=== PATIENT | female | born 1970 | race Caucasian/White ===

== ENCOUNTER 2024-01-18 08:50 | Outpatient (CLI) | payer OTHER, SELFPAY ==
--- NOTE | ~2024-01-18 | CT_ITS ---
CT Scan of the Chest without Contrast: Clinical Indication: Lung cancer screening, nicotine dependence Technique: Contiguous sections were acquired throughout the chest without intravenous contrast. Dose reduction technique was used on this scan by utilizing automated exposure control and iterative recon struction technique. The dose-length product (DLP) was 92.70 mGy-cm. Findings: There is no evidence of any significant mediastinal, hilar or axillary lymphadenopathy. The mediastin al soft tissues appear normal. There is no evidence of pleural or pericardial effusion. The lungs are clear. No pulmonary nodules or infiltrates are noted. Probable minimal emphysema. Images through the upper abdomen reveal no abnormalities. Impression: Lung RADS 1: Negative. 12 month follow-up screening CT advised. Probable minimal emphysema. Reviewed, dictated and finalized at location . Impression: Lung RADS 1: Negative. 12 month follow-up screening CT advised. Probable minimal emphysema.
== END 2024-01-18 08:51 | disposition home or self-care (01) ==
PROVIDERS: PCP Nurse Practitioner Family; Visit Provider Nurse Practitioner Family
DX: Z12.2 Encounter for screening for malignant neoplasm of respiratory organs (principal); F17.210 Nicotine dependence, cigarettes, uncomplicated
CPT/HCPCS: 71271

== ENCOUNTER 2024-02-22 14:29 | Outpatient (CLI) | payer OTHER, SELFPAY ==
--- NOTE | ~2024-02-22 | MM_ITS ---
EXAMINATION: MM screening ayan BI w fany HISTORY: Screening TECHNIQUE: Craniocaudal and mediolateral oblique 3-D tomosynthesis images were obtained and synthetic 2-D images were generated. CAD analysis was submitted and interpreted. COMPARISON: No prior mammogram is available for comparison at this institution. BREAST PARENCHYMAL COMPOSITION: Not dense: There are scattered areas of fibroglandular density. FINDINGS: There are multiple small masses centered in the upper outer quadrant of the right breast. N o mammographic evidence for malignancy in the left breast. IMPRESSION: 1. Multiple small right breast masses. 2. Additional mammographic views and possible breast ultrasound are recommended. BI-RADS Category 0: Incomplete: Needs additional imaging evaluation. Reviewed, dictated and finalized at location B. IMPRESSION: 1. Multiple small right breast masses. 2. Additional mammographic views and possible breast ultrasound are recommended . BI-RADS Category 0: Incomplete: Needs additional imaging evaluation.
== END 2024-02-22 14:30 | disposition home or self-care (01) ==
PROVIDERS: PCP Nurse Practitioner Family; Visit Provider Nurse Practitioner Family
DX: Z12.31 Encounter for screening mammogram for malignant neoplasm of breast (principal); R92.8 Other abnormal and inconclusive findings on diagnostic imaging of breast
CPT/HCPCS: 77063; 77067

== ENCOUNTER 2024-03-22 10:56 | Outpatient (CLI) | payer OTHER, SELFPAY ==
--- NOTE | ~2024-03-22 | MMUS_ITS ---
EXAMINATION: MM diagnostic ayan RT w fany, US breast RT limited HISTORY: Follow-up right breast mass TECHNIQUE: Additional 3-D tomosynthesis images of the right breast were performed and synthetic 2-D i mages were generated. CAD analysis was submitted and interpreted. High resolution Limited right breas t ultrasound was performed. COMPARISON: 02/22/2024 BREAST PARENCHYMAL COMPOSITION: Not dense: There are scattered areas of fibroglandular density. FINDINGS: MAMMOGRAPHIC FINDINGS: There is a dominant mass in the upper outer quadrant of the right breast with central lucencies. Ther e are smaller scattered nodules in the right breast predominantly in the upper half of the breasts. T here are punctate monomorphic calcifications which have a benign appearance. ULTRASOUND: Limited right breast ultrasound: At 10:00, 8 cm from the nipple there is a 9 mm intramammary lymph no de corresponding to the mass identified on mammography. No other discrete mass identified. IMPRESSION: 1. Benign 9 mm intramammary lymph node corresponds to the dominant mass seen on mammography. Addition al small radiolucent nodules of the right breast and calcifications are likely benign. 2. Recommend 6 month follow-up diagnostic right mammogram BI-RADS category 3, probably benign findings. Reviewed, dictated and finalized at location B. IMPRESSION: 1. Benign 9 mm intramammary lymph node corresponds to the dominant mass seen on mammography. Additional small radiolucent nodules of the right breast and calc ifications are likely benign. 2. Recommend 6 month follow-up diagnostic right mammogram BI-RADS category 3, probably benign findings.
== END 2024-03-22 10:57 | disposition home or self-care (01) ==
LOC: ANHIMG 10:57
PROVIDERS: PCP Nurse Practitioner Family; Visit Provider Nurse Practitioner Family
DX: N63.0 Unspecified lump in unspecified breast (principal); R92.8 Other abnormal and inconclusive findings on diagnostic imaging of breast
CPT/HCPCS: 76642; 77061; 77065; G0279

== ENCOUNTER 2024-11-28 11:17 | Outpatient (CLI) | payer OTHER, SELFPAY ==
--- NOTE | ~2024-11-28 | MMUS_ITS ---
EXAMINATION: US breast RT limited, MM diagnostic ayan BI w fany HISTORY: Follow-up right breast mass TECHNIQUE: Additional 3-D tomosynthesis images of the breasts were performed and synthetic 2-D images were generated. CAD analysis was submitted and interpreted. High resolution Limited right breast ult rasound was performed. COMPARISON: 02/22/2024 BREAST PARENCHYMAL COMPOSITION: Not dense: There are scattered areas of fibroglandular density. FINDINGS: MAMMOGRAPHIC FINDINGS: There is a stable intramammary lymph node in the upper outer quadrant of the right breast with centra l lucency. No suspicious masses, calcifications or architectural distortion are identified to suggest malignancy. ULTRASOUND: Limited right breast ultrasound: At 10:00, 8 cm from the nipple there is a 1.2 cm intramammary lymph node. At 9:00, 5 cm from the nipple there is 3 mm cyst. In the right axilla there is a normal-appeari ng 8 mm lymph node. No suspicious masses to suggest malignancy. IMPRESSION: 1. No evidence for malignancy in either breast. Stable benign-appearing intramammary lymph node of th e right breast. 2. Routine yearly screening mammogram and regular clinical breast examination are recommended. BI-RADS Category 2: Benign finding(s). Reviewed, dictated and finalized at location A. IMPRESSION: 1. No evidence for malignancy in either breast. Stable benign-appearing intrama mmary lymph node of the right breast. 2. Routine yearly screening mammogram and regular clinical breast examination a re recommended. BI-RADS Category 2: Benign finding(s).
--- OUTSIDE RECORDS SUMMARY | 2024-11-28 12:53 | XMS_ITS | Clinical Summary ---
Author Organization [facility] Address [facility] [place] [address] Care Team Providers Care Shift Mechanic Name Role Phone Rajni Ordaz FAITH Primary Care Provider [phone] Allergies Active Allergy Reactions Criticality Noted Date Comments Alum & Mag Hydroxide-Simeth Anaphylaxis High 017 Famotidine Anaphylaxis High 08/20/2020 Medications diphenhydrAMINE 25 MG capsule Take 1 capsule (25 mg total) by mouth every 6 (six) hours as needed for Itching. Active Loratadine 10 MG Cap Active albuterol sulfate HFA 108 (90 Base) MCG/ACT inhalerIndicatio ns:Simple chronic bronchitis ([facility]/HCC HHS/HCC) INHALE 1 TO 2 PUFFS BY MOUTH EVERY 4 HOURS NEEDED 18 g 11 4 Active traZODone (DESYREL) 100 MG tabletIndication s:Primary insomnia Take 1 tablet (100 mg total) by mouth nightly at bedtime. 90 tablet 3 5 Active PARoxetine (PAXIL) 20 MG tabletIndication s:Recurrent major depressive disorder, in partial remission Take 1 tablet (20 mg total) by mouth daily. 90 tablet 3 5 Active Albuterol-Budeso nide (AIRSUPRA) 90-80 MCG/ACT AerosolIndicatio ns:Unilateral emphysema (CMS/HCC HHS/HCC) Inhale 2 puffs into the lungs every 6 (six) hours as needed (sob and wheezing). 32.1 g 3 5 Active budesonide-glyco pyrrolate-formot jaclyn (BREZTRI) 160-9-4.8 MCG/ACT inhalerIndicatio ns:Unilateral emphysema ([facility]) Inhale 2 puffs into the lungs 2 (two) times daily. 32.1 g 3 5 Active baclofen (LIORESAL) 10 MG tabletIndication s:Chronic bilateral low back pain without sciatica Take 1 tablet (10 mg total) by mouth 3 (three) times daily. 90 tablet 5 Active ibuprofen (MOTRIN) 800 MG tabletIndication s:Other chronic pain Take 1 tablet (800 mg total) by mouth 2 (two) times daily as needed. 60 tablet 5 Active HYDROcodone-acet aminophen (NORCO) 7.5-325 MG tabletIndication s:Chronic Pain Take 1 tablet by mouth 2 (two) times a day. Indications : Chronic Pain 60 tablet 5 Active HYDROcodone-acet aminophen (NORCO) 7.5-325 MG tabletIndication s:Chronic Pain Take 1 tablet by mouth 2 (two) times a day. Indications : Chronic Pain 60 tablet 5 11/05/19 25 Discontinue d(Reorder) predniSONE (DELTASONE) 20 MG tabletIndication s:COPD exacerbation ([facility]) Take 2 tablets (40 mg total) by mouth daily for 5 days. 10 tablet 5 11/26/19 25 azithromycin (ZITHROMAX) 250 MG tabletIndication s:COPD exacerbation ([facility]) Take 2 tablets on day #1, then 1 tablet daily x 4d. 6 tablet 5 11/26/19 25 Active Problems Problem Noted Date Diagnosed Date COPD exacerbation ([facility]) 11/20/2024 Primary insomnia 10/07/2024 Recurrent major depressive disorder, in partial remission 10/07/2024 Constipation, unspecified constipation type 06/07 Vitamin D deficiency 06/24/2022 Chronic pain 08/07/2017 COPD (chronic obstructive pu lmonary disease) ([facility]) 07/10/2017 Post-menopausal 07/10/2017 GERD (gastroesophageal reflux disease) 7 Hyperlipidemia 07/10/2017 Ulcerative colitis ([facility]) 07/10/2017 Vasomotor symptoms due to menopause 07/10/2017 Early menopause 07/04/2017 Low back pain 07/04/2017 Resolved Problems Problem Noted Date Diagnosed Date Resolved Date Body mass index (BMI) of 23. 0 to 23.9 in adult 08/13/2021 03/03/2023 Body mass index (BMI) 24.0-24.9, adult 08/20/2020 03/03/2023 Rash 08/20/2020 08/15/2021 Adult BMI 25.0-25.9 kg/sq m 07/14/2019 08/20/2020 Body aches 10/05/2017 08/15/2021 Cough 10/05/2017 08/15/2021 Crohn's disease ([facility]) 07/10/2017 08/15/2021 Encounters Date Type Department Care Team Description 11/28/2024 Telephone [facility] Multispecialty [facility] - [address], [address] [place] [address] Parmjit Nunez MD Prior Authorization (Colonoscopy-[id number]) 11/21/2024 Telephone [facility] Internal [address] [address] Rajni Ordaz FNP Orders 11/20/[address] [phone] Demario García MD Cough 11/04/2024 Telephone [facility] Internal [address] [address] Rajni Ordaz FNP Refill Request 10/29/[address] [address] Rajni Ordaz FNP Medication Request 10/21/[address] [address] Rajni Ordaz FNP Information 10/03/2024 1:00 PM DIRECTOR OF ASSESSMENT Office Visit [facility] Internal [address] [address] Rajni Ordaz FNP Follow Up (medication) 10/03/2024 Travel [address] [address] Rajni Ordaz FNP Orders 09/05/2024 Telephone [facility] Internal [address] [address] Rajni Ordaz FNP Medication Request from Last 3 Months Immunizations Immunization Administration Dates Next Due [facility] COVID-19 (ORIGINAL FO RMULATION, PURPLE CAP) mRNA, LNP-S, PF, 30 MCG/0.3 ML DOSE 12/15/2020,11/21/2020 Family History Medical History Relation Comments Diabetes Father Heart Father Heart Disease Father Hypertension Father Cancer Maternal Aunt 1 breast Heart Disease Maternal Aunt 1 Cancer Maternal Aunt 2 Cancer Maternal Aunt 3 Heart Maternal Grandfather Heart Maternal Uncle Heart Disease Maternal Uncle Cancer Mother Hyperlipidemia Mother Obesity Mother Aneurysm Paternal Aunt Aneurysm Paternal Grandmother Aneurysm Sister Relation Status Comments Father Maternal Aunt 1 Maternal Aunt 2 Maternal Aunt 3 Maternal Grandfather Maternal Uncle Mother Paternal Aunt Paternal Grandmother Sister Social History Tobacco Use Types Packs/Day Years Used Date Smoking Tobacco: Every Day Cigarettes 0.8 36 Passive Smoke Exposure: Current Smokeless Tobacco: Never Tobacco Cessation:Ready to Q uit: Yes; Counseling Given: Yes Comments:provider to counselor marriage and family Alcohol Use Standard Drinks/Week Comments No 0 (1 standard drink = 0.6 oz pur e alcohol) AUDIT-C Answer Date Recorded Frequency of Alcohol Consumption Never 09/13/2018 Average Number of Drinks Not on file 019 Frequency of Binge Drinking Not on file 02/2019 PHQ-2 Answer Date Recorded Patient Health Questionnaire-2 Score 0 10/03/2024 Comments No Sex and Gender Information Value Date Recorded Sex Assigned at Female 10/03/2024 12:44 PM DIRECTOR OF ASSESSMENT Legal Sex Female 9:10 PM CDT Gender Identity Female 10/03/2024 1:10 PM DIRECTOR OF ASSESSMENT Sexual Orientation Not on file Last Filed Vital Signs Vital Sign Reading Time Taken Comments Blood Pressure 170/86 10/03/2024 1:10 PM DIRECTOR OF ASSESSMENT Pulse 86 10/03/2024 1:10 PM DIRECTOR OF ASSESSMENT Temperature 35.8 C (96.4 F) 10/03/2024 1:10 PM DIRECTOR OF ASSESSMENT Respiratory Rate 15 10/03/2024 1:10 PM DIRECTOR OF ASSESSMENT Oxygen Saturation 97% 10/03/2024 1:10 PM DIRECTOR OF ASSESSMENT Inhaled Oxygen Concentration - - Weight 73.8 kg (162 lb 12.8 oz) 10/03/2024 1:10 PM DIRECTOR OF ASSESSMENT Height 160 cm (5' 3 ) 10/03/2024 1:10 PM DIRECTOR OF ASSESSMENT Body Mass Index 28.84 10/03/2024 1:10 PM DIRECTOR OF ASSESSMENT Plan of Treatment Upcoming Encounters Date Type Department Care Team (Late st Contact Info) Description 12/23/2024 12:00 PM CDT Hospital Encounter [facility] [place] [address] Parmjit Nunez MD [address] [address] 12/23/2024 12:00 PM CDT - 12/23/2024 12:30 PM CDT Surgery [facility] Endo/[place] [address] Parmjit Nunez MD [address] [address] COLONOSCOPY Scheduled Procedures Name Priority Associated Diagnoses Date/Ti me COLONOSCOPY Ulcerative colitis with complication, unspecified location (CMS/HCC HHS/HCC) Constipation, unspecified constipation type 12/23/2024 12:00 PM CDT Health Maintenance Due Date Last Done Comments Cervical Cancer Screening Pa p Smear (Age 30 to 64) Every 3 Years 1971 Colorectal Cancer Screening Colonoscopy (10 Years) 1971 Annual Physical 1974 Hepatitis B Vaccines (1 of 3 - 19+ 3-dose series) 1990 Pneumococcal Vaccine: 50+ Years (1 of 2 - PCV) 1990 Cervical Cancer Screening Pa darnell with HPV Testing (Age 30 to 64) Every 5 Years 2001 Lung Cancer Screening 2021 Cervical Cancer Screening with HPV 01/15/2025 Postponed from 09/30 (Patient Refused) COVID-19 Vaccine (3 - 2023-2 5 season) 2025 12/15/2020, 11/21/2020 Postponed from 04/07/2024 (Patient Refused) DTaP, Tdap and Td Vaccines ( 1 - Tdap) 10/03/2025 Postponed from 09/30 (Patient Refused) Zoster Vaccines (1 of 2) 10/03/2025 Pos tponed from 2021 (Patient Refused) Mammogram Screening 03/22/2026 03/22/2024, 02/22/2024, 1970 Hepatitis C Completed 01/17/2024 PHQ-2 (Physician [place]) Completed 10/03/2024 Meningococcal B Vaccine Aged Out No l onger eligible based on patient's age to complete this topic Meningococcal Vaccine Aged Out No nicanor abiola eligible based on patient's age to complete this topic RSV Immunizations Under 20 Months Aged Out No longer eligible b ased on patient's age to complete this topic Goals Goal Patient Goal Type Associated Problems Recent Progress Patient-Stated? Author Autogenerat ed Goal Care Plan Autogenerated Problem No Janelle Bishop ironer hand Procedure Name Priority Date/Time Associated Diagnosis Comments MAMMOGRAM GENERIC (SCAN ORDER) 03/22/2024 HEPATITIS C ANTIBODY Routine 01/17/2024 7:17 AM CDT Encounter for hepatitis C screening test for low risk patient from Last 3 Months or Most Recently Relevant to Health Maintenance Results * MAMMOGRAM GENERIC (SCAN ORDER) (03/22/2024) Anatomical Region Laterality Modality Other 03/22/2024 [facility] Scanned SCANNING Final Resu lt * HEPATITIS C ANTIBODY ([facility] ONLY) (01/17/2024 7:17 AM CDT) HEPATITIS C AB NON-REACTI VE NON-REACT [place] 01/17/2024 7:28 PM CDT [facility] Comment: ANTIBODIES TO HCV NOT DETECTED. DOES NOT EXCLUDE THE POSSIBILITY OF EXPOSURE TO HCV. 01/17/2024 7:17 AM CDT [facility] Final Result [facility] [address] [place] [address], [place] [phone] [id number] from Last 3 Months or Most Recently Relevant to Health Maintenance Additional Health Concerns Active Problems Noted Date Diagnosed Date Autogenerated Problem 11/20/2024 Insurance R Advance Directives Documents on File Type Date Recorded Patient Work Over Rig Operator Expl anation Legal Documents 09/13/2018 Self pay for m Care Teams Shift Mechanic Relationship Specialty Start Date End Date Rajni Ordaz FNP [address] [place] [address] PCP - General Nurse Practitioner Family 07/19/18
--- OUTSIDE RECORDS SUMMARY | 2024-11-28 12:53 | XMS_ITS | Encounter Summary ---
Author Organization [facility] Address [address] [place] [address] Care Team Providers Care Engineer And Geologist Name Role Phone Rajni Ordaz FAITH Primary Care Provider [phone] Encounter Details Date Type Department Care Team (Late st Contact Info) Description 02/01/2023 MyChart Message Enc [facility] [address] [place] [address] [place], [facility] Provider Air Quality Message Social History Tobacco Use Types Packs/Day Years Used Date Smoking Tobacco: Every Day Cigarettes 0.8 36 Smokeless Tobacco: Never Comments:provider to mental health counselor Alcohol Use Standard Drinks/Week Comments No 0 (1 standard drink = 0.6 oz pur e alcohol) AUDIT-C Answer Date Recorded Frequency of Alcohol Consumption Never 09/13/2018 Average Number of Drinks Not on file 019 Frequency of Binge Drinking Not on file 02/2019 PHQ-2 Answer Date Recorded PHQ-2 Score - If the patient scores above 3, please move on to questions 3-9 0 08/20/2020 Comments No Sex and Gender Information Value Date Recorded Sex Assigned at Female 10/03/2024 12:44 PM FILM PROCESSING UTILITY WORKER Legal Sex Female 9:10 PM CDT Gender Identity Female 10/03/2024 1:10 PM FILM PROCESSING UTILITY WORKER Sexual Orientation Not on file documented as of this encounter Plan of Treatment Upcoming Encounters Date Type Department Care Team (Late Contact Info) Description 12/23/2024 12:00 PM CDT Hospital Encounter [facility] [place] [address] Parmjit Nunez MD 3 [facility] [address] [place] [address] 12/23/2024 12:00 PM CDT - 12/23/2024 12:30 PM CDT Surgery [facility] [place] [address] Parmjit Nnuez MD 3 [facility] [address] [place] [address] COLONOSCOPY Scheduled Procedures Name Priority Associated Diagnoses Date/Ti wv COLONOSCOPY Ulcerative colitis with complication, unspecified location ([facility]) Constipation, unspecified constipation type 12/23/2024 12:00 PM CDT documented as of this encounter Visit Diagnoses Not on filedocumented in this encounter Additional Health Concerns Infection Onset Date Last Indicated Resolved Time COVID-19 Rule Out 04/24/2024 04/24/2024 04/24/2024 9:25 AM CDT COVID-19 Confirmed 04/24/2024 04/24/2024 12:32 AM CDT Assessment Noted Time PHQ-9 Depression Total Score: 1 08/20/19 21 11:53 AM FILM PROCESSING UTILITY WORKER documented as of this encounter Care Teams Engineer And Geologist Relationship Specialty Start Date End Date Rajni Ordaz FNP [address] [place] [address] PCP - General Nurse Practitioner Family 07/19/18 documented as of this encounter
--- OUTSIDE RECORDS SUMMARY | 2024-11-28 12:53 | XMS_ITS | CONTINUITY OF CARE DOCUMENT ---
Author Name shimon robins Address Unknown Organization [facility] Address [address] [place] [address] Phone [phone] Care Team Providers Care Regional Climate Change Analyst Name Role Phone Gibran Damon MD Unavailable [phone] [place] SESAYP-CRajni Unavailable [place] SENIOR SOFTWARE DEVELOPMENT MANAGER-C, Rajni Unavailable INSURANCE PROVIDERS Payer name Policy type / Coverage type [place] red democrat ID [id number] PAY
--- OUTSIDE RECORDS SUMMARY | 2024-11-28 12:53 | XMS_ITS | Encounter Summary ---
Author Organization [facility] Address [address] [place] [address] Care Team Providers Care House Decorator Name Role Phone Rajni Ordaz FAITH Primary Care Provider [phone] Reason for Visit * Reason Onset Date Comments Prior Authorization 11/28/2024 Colonoscopy- [id number] Encounter Details Date Type Department Care Team (Late st Contact Info) Description 11/28/2024 Telephone [facility] Multispecialty Care - [facility] 3 [facility], [address] [place] [phone] Parmjit Nunez MD [address] [address] Prior Authorization (Colonoscopy-[id number] 0;[id number]) Social History Tobacco Use Types Packs/Day Years Used Date Smoking Tobacco: Every Day Cigarettes 0.8 36 Passive Smoke Exposure: Current Smokeless Tobacco: Never Comments:provider to financial services counselor Alcohol Use Standard Drinks/Week Comments No [...] Sex Assigned at Female 10/03/2024 12:44 PM WIRE BOUND BOX MACHINE HELPER Legal Sex Female 9:10 PM CDT Gender Identity Female 10/03/2024 1:10 PM WIRE BOUND BOX MACHINE HELPER Sexual Orientation Not on file documented as of this encounter Progress Notes * Bindu Barker MA - 11/28/2024 10:08 AM CDT Case Details Requestor Name: Parmjit Nunez Department: Gastroenterology Phone Number: E-mail Address: [email or web address] Department PhoneNumber: UR Department Fax Number: UR Department Contact Info: Patient Employee's Name: [employer]HELLE [employer]K Name: MECHELLE P[employer]K Ttng-mw-Bedwx: 1970 Home Phone: Details (Medical Outpatient ) Treatment Setting: Outpatient Treatment Type: Surgical Urgency: Elective Start Date: 12-23-2024 Direct Network: [employer] [facility] Primary Network: [facility] Diagnosis Code Description K51.90 ULCERATIVE COLITIS UNS W/O COMP K59.00 CONSTIPATION UNSPECIFIED Services Code Description Unit 54564 DIAGNOSTIC COLONOSCOPY 1 D 04539 COLONOSCOPY AND BIOPSY 1 D 67385 COLONOSCOPY W/LESION REMOVAL 1 D Facility Information Name: [facility] Address:[address] [place] [address] and ZIP: [place] [address] Phone: Tax Identification Number: [id number] Provider Information First Name: PARMJIT Andujar Last Name: JAKY Gender: M Address: [address] and ZIP: [place] [address] Phone: Tax Identification Number: [id number] National Provider Identifier: [id number] Clinical Documentation [email or web address] Prior authorization and predetermination are not a guarantee of benefits.Please contact the benefits department to verify coverage and benefit information for the member. Transaction Submission Confirmation was submitted on 11-28-2024 by [email or web address] documented in this encounter Plan of Treatment Upcoming Encounters Date Type Department Care Team ([facility] st Contact Info) Description 12/23/2024 12:00 PM CDT Hospital Encounter [facility] [place] [place] [address] Parm[facility]it Nunez MD [facility] [address] [place] [address] 12/23/2024 12:00 PM CDT - 12/23/2024 12:30 PM CDT Surgery [facility] [address] [facility] [place] [address] Parmjit Nunez MD [address] [facility] [address] [place] [address] COLONOSCOPY Scheduled Procedures Name Priority Associated Diagnoses Date/Ti me COLONOSCOPY Ulcerative colitis with complication, unspecified location ([facility]) Constipation, unspecified constipation type 12/23/2024 12:00 PM CDT documented as of this encounter Goals Goal Patient Goal Type Associated Problems Recent Progress Patient-Stated? Author Autogenerat ed Goal Care Plan Autogenerated Problem No Janelle Bishop, RN documented as of this encounter Visit Diagnoses Not on filedocumented in this encounter Additional Health Concerns Active Problems Noted Date Diagnosed Date Autogenerated Problem 11/20/2024 Assessment Noted Time PHQ-9 Depression Total Score: 1 08/20/19 21 11:53 AM WIRE BOUND BOX MACHINE HELPER documented as of this encounter Care Teams House Decorator Relationship Specialty Start Date End Date Rajni Ordaz FNP [address] [place] [address] PCP - General Nurse Practitioner Family 07/19/18 documented as of this encounter
== END 2024-11-28 11:18 | disposition home or self-care (01) ==
PROVIDERS: PCP Nurse Practitioner Family; Visit Provider Nurse Practitioner Family
DX: R92.8 Other abnormal and inconclusive findings on diagnostic imaging of breast (principal); N63.10 Unspecified lump in the right breast, unspecified quadrant
CPT/HCPCS: 76642; 77062; 77066; G0279

== ENCOUNTER 2024-12-11 13:20 | Outpatient (CLI) | payer OTHER, SELFPAY ==
--- NOTE | ~2024-12-11 | CT_ITS ---
CT abdomen pelvis wo con Ordering provider: FAROOQ CAMPBELL, INDIRECT SALES REPRESENTATIVE History: 54 years Female with . LEFT FLANK PAIN . Comparison: None. Technique: CT abdomen and pelvis without IV and without oral contrast. Automated exposure control and iterative reconstruction technique were employed. The dose-length product was 533.26 mGy-cm. Findings: VISUALIZED LOWER CHEST: Normal. UPPER ABDOMINAL ORGANS: Liver: Normal. Gallbladder: Status post cholecystectomy. Spleen: Normal. Stomach/duodenum: Normal. Pancreas: Normal. Adrenals: Normal. Kidneys: Normal. PELVIC ORGANS: The bladder is underfilled with thickened wall. Evaluation for cystitis advised. BOWEL AND MESENTERY: Colon: Mild sigmoid diverticulosis without diverticulitis. Normal appendix. Small Bowel: Normal. No obstruction. Peritoneum/mesentery: No free air or free fluid. No mesenteric lymphadenopathy. RETROPERITONEUM: Mild atheromatous disease of the abdominal aorta. No retroperitoneal lymphadenopat hy. MUSCULOSKELETAL: Superficial soft tissues: Tiny fat-containing umbilical hernia. The superficial soft tissues are norm al. Bones: Age appropriate degenerative changes of the spine. Spondylolysis at the level of L5-S1 with fi rst-degree spondylolisthesis. IMPRESSION: 1. No evidence of appendicitis, diverticulitis or intestinal obstruction. 2. No definite renal stones. 3. Underfilled urinary bladder. Evaluation for cystitis advised. Reviewed, dictated and finalized at location A.
== END 2024-12-11 13:21 | disposition home or self-care (01) ==
LOC: MICIMG 13:21
PROVIDERS: PCP Nurse Practitioner Family; Visit Provider Nurse Practitioner Family
DX: R10.2 Pelvic and perineal pain (principal); R31.0 Gross hematuria
CPT/HCPCS: 74176

== ENCOUNTER 2025-01-20 13:13 | Outpatient (CLI) | payer OTHER, SELFPAY ==
--- NOTE | ~2025-01-20 | CT_ITS ---
CT Scan of the Chest without Contrast: Clinical Indication: Lung cancer screening, nicotine dependence Technique: Contiguous sections were acquired throughout the chest without intravenous contrast. Dose reduction technique was used on this scan by utilizing automated exposure control and iterative recon struction technique. The dose-length product (DLP) was 69.59 mGy-cm. COMPARISON: 01/18/2024 Findings: There is no evidence of any significant mediastinal, hilar or axillary lymphadenopathy. The mediastin al soft tissues appear normal. There is no evidence of pleural or pericardial effusion. The lungs are clear. No pulmonary nodules or infiltrates are noted. Mild emphysema. Images through the upper abdomen reveal no abnormalities. Impression: Lung RADS 1: Negative. 12 month follow-up screening CT advised. Reviewed, dictated and finalized at location . Impression: Lung RADS 1: Negative. 12 month follow-up screening CT advised.
== END 2025-01-20 13:14 | disposition home or self-care (01) ==
LOC: MICIMG 13:14
PROVIDERS: PCP Nurse Practitioner Family; Visit Provider Nurse Practitioner Family
DX: J42 Unspecified chronic bronchitis (principal)
CPT/HCPCS: 71271

== ENCOUNTER 2025-06-23 12:13 | Emergency (ER) | payer OTHER, SELFPAY ==
--- NOTE | ~2025-06-23 | XR_ITS ---
Examination: XR chest 2V Clinical History: PT STATES CHEST PAIN AND COUGH X 1 WEEK Comparison: CT lung screening 01/20/2025 Technique: PA and Lateral Findings: Cardiomediastinal silhouette normal size and configuration. Lungs clear. Mild hyperinflation. No acute bony abnormality. IMPRESSION: 1. No acute cardiopulmonary findings. Reviewed, dictated and finalized at location R. RUMENTAL MUSIC TEACHER
--- NOTE | 2025-06-23 12:14 | ECG_ITS ---
Test Date: 2025-06-23 12:26:45 Measurements Intervals [place] Rate: 84 P: 69 NV: 160 QRS: 50 QRSD: 87 T: 51 QT: 366 QTc: 435 Interpretive Statements SINUS RHYTHM No previous ECG available for comparison Electronically Signed On 06-23-2025 12:48:46 MACHINE OPERATOR ASSISTANT by Rickie Rios M.D.
[2025-06-23 12:40] LABS: Hematocrit 42.6 % (37.0-47.0); Hemoglobin 14.2 g/dL (12.0-15.0); Immature Granulocyte Percent A 0.6 % (0-0.5); Lymphocytes Absolute Auto 2.49 K/mm3 (0.9-3.2); Mean Corpuscular HGB Conc 33.3 g/dl (32-36); Mean Corpuscular Hemoglobin 33.8 pg (26-34); Mean Corpuscular Volume 101.4 fl (80-100); Nucleated Red Blood Cells Absolute Auto 0.000 K/mm3 (0.0-0.012); Nucleated Red Blood Cells Perc 0.0 % (0.0-0.2); Platelet Count Result 214 k/mm3 (150-375); Red Blood Count 4.20 M/mm3 (4.2-5.4); White Blood Count 7.3 K/mm3 (4.5-10.0)
[2025-06-23 12:50] LABS: INR 0.9; Prothrombin Time 12.6 Seconds (11.1-14.7)
[2025-06-23 12:51] LABS: Partial Thromboplastin Time 26.4 Seconds (22.3-36.8)
[2025-06-23 12:53] LABS: Alanine Aminotransferase 34 U/L (6-35); Albumin Level 4.9 g/dL (3.5-5.1); Alkaline Phosphatase 118 U/L (38-126); Anion Gap 9 mmol/L (4-12); Aspartate Amino Transferase 32 U/L (14-36); Bilirubin,Total 0.5 mg/dL (0.2-1.3); Blood Urea Nitrogen 20 mg/dL (7-17); Calcium 9.6 mg/dL (8.4-10.2); Carbon Dioxide 27 mmol/L (22-30); Chloride 103 mmol/L (98-107); Estimated Glomerular Filt Rate > 60; Glucose 104 mg/dL (65-110); Lipase 292 U/L (23-300); Potassium 3.5 mmol/L (3.4-5.0); Sodium 139 mmol/L (137-145); Total Protein 8.2 g/dL (6.3-8.2)
[2025-06-23 12:57] VITALS: BP 160/87; PULSE 83; RESP 20; TEMP 36.3; O2SAT 97
[2025-06-23 13:03] LABS: Troponin I < 0.012 ng/mL (0.000-0.034)
[2025-06-23 14:51] VITALS: BP 152/108; PULSE 88; RESP 20; O2SAT 99
--- NOTE | 2025-06-23 15:32 | ECG_ITS ---
Test Date: 2025-06-23 16:10:31 Measurements Intervals [place] Rate: 82 P: 69 MT: 157 QRS: 38 QRSD: 77 T: 41 QT: 350 QTc: 409 Interpretive Statements SINUS RHYTHM Compared to ECG 06/23/2025 12:26:45 No significant changes Electronically Signed On 06-23-2025 20:04:08 ADMINISTRATIVE OFFICE CLERK by Magan Mishra D.O
--- NOTE | 2025-06-23 16:02 | ED.CHESTPAIN ---
HPI - Chest Pain General Chief Complaint: Chest Pain Stated Complaint: chest pain since this am. HX copd Time Seen by Provider: 06/23/25 17:57 Focused HPI: Patient is a 54 y/o female, with PMH of COPD, asthma, HTN, who presents to the ED with c/o CP. Patient reports she has had recurrent chest pain today. Present throughout her midsternal chest, radiating to her R shoulder and through to her back. Pain is intermittent, denies significant aggravating/alleviating factors. Had to leave work d/t the pain. Does report slight discomfort in her midsternal chest currently. Reports increased SOB with exertion since last week. Notes she was sick with URI sx's last week, including cough and congestion which are still lingering. Denies fevers. Denies pain or swelling in legs. Denies hx of heart disease, +FHx of heart disease in her father in his 50s. Denies hx of HLD, DM. Is a smoker. GENERAL: Appears older than stated age, well-nourished, and in no acute distress. HEAD: Normocephalic, atraumatic. CHEST: Clear to auscultation. ?No respiratory distress. HEART: Regular rate and rhythm.? MSK: Mild TTP in midsternal /anterior chest wall. NEURO: ?Alert and oriented x3. Patient screened in triage and initial orders placed.? ?Additional care and disposition to be based upon?diagnostic testing and treatment. Source: patient Mode of arrival: ambulatory Limitations: no limitations Related Data Allergies Allergy/AdvReac Type Severity Reaction Status Date / Time antacid AdvReac Severe Anaphylactic Uncoded 06/23/25 12:57 Shock Course Vital Signs Vital signs: Vital Signs Temperature 97.4 F L 06/23/25 12:57 Pulse Rate 83 06/23/25 12:57 Respiratory Rate 20 06/23/25 12:57 Blood Pressure 160/87 H 06/23/25 12:57 Pulse Oximetry 97 06/23/25 12:57 Oxygen Delivery Room Air 06/23/25 12:57 Temperature 97.4 F L 06/23/25 12:57 Pulse Rate 85 06/23/25 17:06 Respiratory Rate 15 06/23/25 17:06 Blood Pressure 177/91 H 06/23/25 17:06 Pulse Oximetry 96 06/23/25 17:35 Oxygen Delivery Room Air 06/23/25 17:35 MDM - Chest Pain MDM Narrative Medical decision making narrative: MSE by ROSELIA in triage. Lab Data 06/23/25 12:31 06/23/25 12:31 Labs: Lab Results 06/23/25 06/23/25 Range/Units 12:31 16:22 WBC 7.3 (4.5-10.0) K/mm3 RBC 4.20 (4.2-5.4) M/mm3 Hgb 14.2 (12.0-15.0) g/dL Hct 42.6 (37.0-47.0) % MCV 101.4 H (80-100) fl MCH 33.8 (26-34) pg MCHC 33.3 (32-36) g/dl RDW 12.4 (11.5-14.5) % Plt Count 214 (150-375) k/mm3 MPV 8.8 (7.4-10.4) fl Immature Gran % (Auto) 0.6 H (0-0.5) % Neut % (Auto) 56.5 (45.5-73.1) % Lymph % (Auto) 34.3 (18.3-44.2) % [place] % (Auto) 6.9 (2.6-8.5) % Eos % (Auto) 1.1 (0-4.4) % Baso % (Auto) 0.6 (0.2-1.2) % Lymph # (Auto) 2.49 (0.9-3.2) K/mm3 [place] # (Auto) 0.5 (0.1-0.6) K/mm3 Eos # (Auto) 0.1 (0-0.3) K/mm3 Baso # (Auto) 0.0 (0.0-0.1) K/mm3 Abs Immat Gran (auto) 0.04 H (0.00-0.031) K/mm3 Absolute Neuts (auto) 4.1 (1.3-6.7) K/mm3 Absolute Nucleated RBC 0.000 (0.0-0.012) K/mm3 Nucleated RBC % 0.0 (0.0-0.2) % PT 12.6 (11.1-14.7) Seconds INR 0.9 APTT 26.4 (22.3-36.8) Seconds D-Dimer < 0.27 (<0.48) ug/mL Sodium 139 (137-145) mmol/L Potassium 3.5 (3.4-5.0) mmol/L Chloride 103 (98-107) mmol/L Carbon Dioxide 27 (22-30) mmol/L Anion Gap 9 (4-12) mmol/L BUN 20 H (7-17) mg/dL Creatinine 0.86 (0.7-1.0) mg/dL Estim Creat Clear Calc Not Reportable Estimated GFR > 60 (59 - ) Glucose 104 (65-110) mg/dL Calcium 9.6 (8.4-10.2) mg/dL Total Bilirubin 0.5 (0.2-1.3) mg/dL AST 32 (14-36) U/L ALT 34 (6-35) U/L Alkaline Phosphatase 118 (38-126) U/L Troponin I < 0.012 < 0.012 (0.000-0.034) ng/mL Total Protein 8.2 (6.3-8.2) g/dL Albumin 4.9 (3.5-5.1) g/dL Lipase 292 (23-300) U/L Influenza A (RT-PCR) Negative (Negative) Influenza B (RT-PCR) Negative (Negative) RSV (RT-PCR) Negative (Negative) SARS-CoV-2 RNA (RT-PCR) Negative (Negative) Discharge Plan Discharge Clinical Impression: Chest pain Patient Disposition: Home Condition: Stable Instructions: Chest Wall Pain (ED) Additional Instructions: RETURN IF SYMPTOMS ARE WORSENING , CALL YOUR FAMILY PHYSICIAN FOR APPOINTMENT, TAKE TYLENOL NEEDED FOR ACHES AND PAIN, CONTINUE HOME MEDICATIONS. Patient Language: Swiss Prescriptions: New diclofenac sodium 75 mg tablet,delayed release (DR/EC) 75 mg PO BID PRN (Reason: pain) Qty: 14 0RF Follow-up/Referrals: ADRIAN,SABI TRIVEDI [Primary Care Provider] Stand Alone Forms: Work/School Release IP
[2025-06-23 16:53] LABS: Troponin I < 0.012 ng/mL (0.000-0.034)
[2025-06-23 17:06] VITALS: BP 177/91; PULSE 85; RESP 15; O2SAT 96
[2025-06-23 17:09] LABS: Influenza A QL RT-PCR Negative (Negative); Influenza B QL RT-PCR Negative (Negative); RSV RNA, RT-PCR Negative (Negative); SARS-CoV-2 RNA PCR Negative (Negative)
[2025-06-23 17:35] VITALS: O2SAT 96
--- NOTE | 2025-06-23 17:59 | ED.CHESTPAIN ---
HPI - Chest Pain General Chief Complaint: Chest Pain Stated Complaint: chest pain since this am. HX copd Time Seen by Provider: 06/23/25 17:57 Source: patient Mode of arrival: ambulatory Limitations: no limitations History of Present Illness HPI narrative: 54 YEARS OLD WHITE FEMALE CAME TO THE ED BY PRIVATE CAR WITH HER COMPLAINING OF RIGHT CHEST PAIN RADIATING TO RIGHT SHOULDER AND RIGHT UPPER BACK. THIS STARTED THIS MORNING. PATIENT DENIES AGGRAVATING OR RELIEVING FACTORS, PAIN IS SHARP AND STABBING. SHE DENIES ANY FEVER, CHILLS, NAUSEA VOMITING, SHORTNESS OF BREATH. HISTORY OF HYPERTENSION COPD MUSCLE DISORDER. PATIENT SMOKES CIGARETTES, DENIES DRINKING OR USING DRUGS. 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 PATIENT IS TELLING ME LAST WEEK WAS COUGHING TOO MUCH WHICH PROBABLY CAUSED HER PAIN Related Data Allergies Allergy/AdvReac Type Severity Reaction Status Date / Time antacid AdvReac Severe Anaphylactic Uncoded 06/23/25 12:57 Shock Review of Systems Review of Systems: All systems reviewed & are unremarkable except as noted in HPI and below Exam Narrative: GENERAL APPEARANCE: WELL-DEVELOPED, WELL-NOURISHED SKIN: NORMAL COLOR HEAD: NORMOCEPHALIC, NONTRAUMATIC EYES: CLEAR CONJUNCTIVA ENT: OROPHARYNX NORMAL, EARS NORMAL, NOSE NORMAL NECK: SUPPLE, NONTENDER CHEST AND RESPIRATORY: AIRWAY PATENT, NO RESPIRATORY DISTRESS, NO ACCESSORY MUSCLE USE SEVERE DIFFUSE TENDERNESS RIGHT CHEST, RIGHT UPPER BACK WORSE WITH RIGHT ARM MOVEMENT. NO BRUISES, NO SWELLING OR RASH HEART: REGULAR RATE/RHYTHM ABDOMEN: SOFT, NONTENDER, NO ORGANOMEGALY, QUIET BOWEL SOUNDS VASCULAR: NORMAL PERIPHERAL PULSES, NORMAL CAPILLARY REFILL. MUSCULOSKELETAL: NORMAL RANGE OF MOTION, NONTENDER BACK NEUROLOGIC: ALERT AND ORIENTED ?3, INDEX EDITOR IS NORMAL TESTED, NO GROSS MOTOR DEFICIT Course Vital Signs Vital signs: Vital Signs Temperature 36.3 C L 06/23/25 12:57 Pulse Rate 83 06/23/25 12:57 Respiratory Rate 20 06/23/25 12:57 Blood Pressure 160/87 H 06/23/25 12:57 Pulse Oximetry 97 06/23/25 12:57 Oxygen Delivery Room Air 06/23/25 12:57 Temperature 36.3 C L 06/23/25 12:57 Pulse Rate 85 06/23/25 17:06 Respiratory Rate 15 06/23/25 17:06 Blood Pressure 177/91 H 06/23/25 17:06 Pulse Oximetry 96 06/23/25 17:35 Oxygen Delivery Room Air 06/23/25 17:35 MDM - Chest Pain MDM Narrative Medical decision making narrative: PATIENT CAME WITH THE RIGHT CHEST RIGHT UPPER BACK AND RIGHT SHOULDER PAIN VITAL SIGN SHOWING BLOOD PRESSURE 160/87 OTHERWISE WITHIN NORMAL LIMIT PHYSICAL PHYSICAL EXAMINATION SHOWING DIFFUSE TENDERNESS RIGHT CHEST RIGHT UPPER BACK AND RIGHT SHOULDER DIFFERENTIAL DIAGNOSIS INCLUDE CHEST WALL PAIN, PNEUMONIA, PLEURAL EFFUSION, PLEURISY, PNEUMOTHORAX LESS LIKELY CORONARY ARTERY DISEASE, PULMONARY EMBOLISM Differential Diagnosis Differential diagnosis: Likely other ( ABOVE) Medical Records Data Attestation: I reviewed the patient's medical records. Lab Data Attestation: I reviewed the patient's lab results. 06/23/25 12:31 06/23/25 12:31 Labs: Lab Results 06/23/25 06/23/25 Range/Units 12:31 16:22 WBC 7.3 (4.5-10.0) K/mm3 RBC 4.20 (4.2-5.4) M/mm3 Hgb 14.2 (12.0-15.0) g/dL Hct 42.6 (37.0-47.0) % MCV 101.4 H (80-100) fl MCH 33.8 (26-34) pg MCHC 33.3 (32-36) g/dl RDW 12.4 (11.5-14.5) % Plt Count 214 (150-375) k/mm3 MPV 8.8 (7.4-10.4) fl Immature Gran % (Auto) 0.6 H (0-0.5) % Neut % (Auto) 56.5 (45.5-73.1) % Lymph % (Auto) 34.3 (18.3-44.2) % [place] % (Auto) 6.9 (2.6-8.5) % Eos % (Auto) 1.1 (0-4.4) % Baso % (Auto) 0.6 (0.2-1.2) % Lymph # (Auto) 2.49 (0.9-3.2) K/mm3 [place] # (Auto) 0.5 (0.1-0.6) K/mm3 Eos # (Auto) 0.1 (0-0.3) K/mm3 Baso # (Auto) 0.0 (0.0-0.1) K/mm3 Abs Immat Gran (auto) 0.04 H (0.00-0.031) K/mm3 Absolute Neuts (auto) 4.1 (1.3-6.7) K/mm3 Absolute Nucleated RBC 0.000 (0.0-0.012) K/mm3 Nucleated RBC % 0.0 (0.0-0.2) % PT 12.6 (11.1-14.7) Seconds INR 0.9 APTT 26.4 (22.3-36.8) Seconds D-Dimer < 0.27 (<0.48) ug/mL Sodium 139 (137-145) mmol/L Potassium 3.5 (3.4-5.0) mmol/L Chloride 103 (98-107) mmol/L Carbon Dioxide 27 (22-30) mmol/L Anion Gap 9 (4-12) mmol/L BUN 20 H (7-17) mg/dL Creatinine 0.86 (0.7-1.0) mg/dL Estim Creat Clear Calc Not Reportable Estimated GFR > 60 (59 - ) Glucose 104 (65-110) mg/dL Calcium 9.6 (8.4-10.2) mg/dL Total Bilirubin 0.5 (0.2-1.3) mg/dL AST 32 (14-36) U/L ALT 34 (6-35) U/L Alkaline Phosphatase 118 (38-126) U/L Troponin I < 0.012 < 0.012 (0.000-0.034) ng/mL Total Protein 8.2 (6.3-8.2) g/dL Albumin 4.9 (3.5-5.1) g/dL Lipase 292 (23-300) U/L Influenza A (RT-PCR) Negative (Negative) Influenza B (RT-PCR) Negative (Negative) RSV (RT-PCR) Negative (Negative) SARS-CoV-2 RNA (RT-PCR) Negative (Negative) Imaging Data Radiologist's impression: Impressions Chest X-Ray 06/23/25 13:15 IMPRESSION: 1. No acute cardiopulmonary findings. ECG Data EKG #1: Attestation: I personally reviewed and interpreted this ECG as follows: ECG completion date: 06/23/25 Interpretation: NORMAL SINUS RHYTHM AT 84 BEATS PER MINUTE, NO PREVIOUS EKG AVAILABLE FOR COMPARISON Critical Care Time Critical Care Time Critical Care Time: No Discharge Plan Discharge Clinical Impression: Chest pain Patient Disposition: Home Condition: Stable Instructions: Chest Wall Pain (ED) Additional Instructions: RETURN IF SYMPTOMS ARE WORSENING , CALL YOUR FAMILY PHYSICIAN FOR APPOINTMENT, TAKE TYLENOL NEEDED FOR ACHES AND PAIN, CONTINUE HOME MEDICATIONS. Patient Language: Ivorian Prescriptions: New diclofenac sodium 75 mg tablet,delayed release (DR/EC) 75 mg PO BID PRN (Reason: pain) Qty: 14 0RF Follow-up/Referrals: ADRIAN,SABI TRIVEDI [Primary Care Provider] Stand Alone Forms: Work/School Release IP Quality HEART score for chest pain patients History: slightly suspicious ECG: normal Age: > 45 and < 65 years Risk factors: 1 or 2 risk factors Troponin: < or = to 1x normal limit Heart score: 2
== END 2025-06-23 19:04 | disposition home or self-care (01) ==
PROVIDERS: Emergency Medicine; Physician Assistant; Emergency Provider Emergency Medicine; PCP Nurse Practitioner Family
DX: R07.2 Precordial pain (principal); Z20.822 Contact with and (suspected) exposure to COVID-19; J44.9 Chronic obstructive pulmonary disease, unspecified; I10 Essential (primary) hypertension; M62.9 Disorder of muscle, unspecified; F17.210 Nicotine dependence, cigarettes, uncomplicated
CPT/HCPCS: 36415; 71046; 80053; 83690; 84484; 85025; 85380; 85610; 85730; 87637; 93005; 99284